=== PATIENT | female | born 1990 | race American Indian/Alaskan Native ===

== ENCOUNTER 2021-08-06 21:10 | Emergency (ER) | payer BC ==
[2021-08-06] MEDS ORDERED: ONDANSETRON 4 MG ODT TAB PO ONE (23:27)
[2021-08-07 00:49] LABS: Hematocrit 42.4 % (30.3-42.9); Hemoglobin 14.1 gm/dl (10.1-14.3); Mean Corpuscular HGB Conc 33 % (30-34); Mean Corpuscular Volume 97 fl (79-97); Platelet Count 224 K/mm3 (140-440); Red Blood Count 4.38 M/mm3 (3.65-5.03); Red Cell Distribution Width 13.3 % (13.2-15.2)
[2021-08-07 01:04] LABS: INR 0.88 (0.87-1.13)
[2021-08-07 01:09] LABS: Blood Urea Nitrogen 14 mg/dL (7-17); Hemolysis Index 7
[2021-08-07 01:13] LABS: BUN/Creatinine Ratio 20
[2021-08-07] MEDS ORDERED: SODIUM CHLORIDE 0.9% 1000 ML 1,000 ML IV ONE (03:20)
[2021-08-07] MEDS ORDERED: KETOROLAC 30 MG/1 ML INJ IV ONE (03:20)
[2021-08-07] MEDS ORDERED: BUTALB/ACETAMINOPHEN/CAFFEINE TAB PO ONE (03:20)
[2021-08-07] MEDS ORDERED: ONDANSETRON 4 MG/2 ML INJ IV ONE (03:21)
--- NOTE | 2021-08-07 04:05 | XRay Report ---
CHEST 1 VIEW INDICATION / CLINICAL INFORMATION: Syncope, lightheadedness. COMPARISON: None available. FINDINGS: SUPPORT DEVICES: None. HEART / MEDIASTINUM: No significant abnormality. LUNGS / PLEURA: No significant pulmonary or pleural abnormality. No pneumothorax. ADDITIONAL FINDINGS: No significant additional findings. IMPRESSION: 1. No acute findings. Signer Name: Chino Aguirre MD Signed: 08/07/2021 4:01 AM Workstation Name: [id number]
[2021-08-07 04:29] LABS: Bilirubin,Urine NEG (Negative); Blood,Urine NEG (Negative); Color,Urine Yellow (Yellow); Mucus,Urine 1+ /HPF; Protein,Urine <15 mg/dL mg/dL (Negative); WBC,Urine < 1.0 /HPF (0.0-6.0)
--- NOTE | 2021-08-07 05:10 | Cat Scan Report ---
CT HEAD WITHOUT CONTRAST INDICATION / CLINICAL INFORMATION: HEADACHE, SYNCOPE. TECHNIQUE: All CT scans at this location are performed using CT dose reduction for ALARA by means of automated e xposure control. COMPARISON: None available. FINDINGS: HEMORRHAGE: None. EXTRA-AXIAL SPACES: Normal in size and morphology for the patient's age. VENTRICULAR SYSTEM: Normal in size and morphology for the patient's age. CEREBRAL PARENCHYMA: No significant abnormality. No acute territorial infarct. MIDLINE SHIFT OR HERNIATION: None. CEREBELLUM / BRAINSTEM: No significant abnormality. ORBITS: Normal as visualized. SOFT TISSUES of HEAD: No significant abnormality. CALVARIUM: No significant abnormality. PARANASAL SINUSES / MASTOID AIR CELLS: Mucosal thickening right maxillary sinus. ADDITIONAL FINDINGS: None. IMPRESSION: 1. No acute intracranial abnormality. 2. Mucosal thickening right maxillary sinus Signer Name: Chino Aguirre MD Signed: 08/07/2021 5:06 AM Workstation Name: [id number]
--- NOTE | 2021-08-07 06:14 | Emergency Department Report ---
ED General Adult HPI - General Chief complaint: Syncope Stated complaint: SYNCOPE EPISODE/VOMITING Source: patient Mode of arrival: Ambulatory Limitations: No Limitations - History of Present Illness Initial comments: Patient is a 31-year-old -[place] female with no past medical history who presents to the ED with complaint of acute onset persistent headache, nausea and vomiting, lightheadedness for the last 2 days. Patient also complains of worsening symptoms in the last 12 hours complicated by a near syncopal episode after having intractable nausea and vomiting. Patient denies loss of consciousness, seizures, chest pain or shortness of breath, fever, chills, neck pain, change in vision, abdominal pain, diarrhea, dysuria, urinary frequency and urgency, back pain, sore throat, palpitations or cough. MD Complaint: Nausea and vomiting, lightheadedness, near syncopal episode, headache -: days(s) (2) Location: head Radiation: non-radiation Severity scale (0 -10): 7 Quality: aching, sharp Consistency: constant Improves with: none Worsens with: none Associated Symptoms: denies other symptoms, headaches, loss of appetite, malaise, nausea/vomiting, syncope, weakness. denies: confusion, cough, diaphoresis, rash, seizure, shortness of breath Treatments Prior to Arrival: none - Related Data Previous Rx's Medication Instructions Recorded Last Taken Type Amoxicillin/K Clav Tab [Augmentin 1 tab PO Q12HR #20 tab 08/07/21 Unknown Rx 875 mg] Butalb/Acetamin/Caff 50-325-40 1 - 2 tab PO Q6HR PRN #15 tab 08/07/21 Unknown Rx [Fioricet 50-325-40] Ibuprofen [Motrin] 800 mg PO Q8HR PRN #30 tablet 08/07/21 Unknown Rx Ondansetron [Zofran Odt] 4 mg PO Q8HR PRN #20 tab.rapdis 08/07/21 Unknown Rx Allergies Allergy/AdvReac Type Severity Reaction Status Date / Time No Known Allergies Allergy Verified 08/06/21 22:24 ED Review of Systems ROS: Stated complaint: SYNCOPE EPISODE/VOMITING Other details as noted in HPI Constitutional: malaise. denies: chills, fever, weakness Eyes: denies: eye pain, eye discharge, vision change ENT: denies: ear pain, throat pain Respiratory: denies: cough, shortness of breath, wheezing Cardiovascular: syncope. denies: chest pain, palpitations Endocrine: no symptoms reported Gastrointestinal: nausea, vomiting. denies: abdominal pain, diarrhea Genitourinary: denies: urgency, dysuria, discharge Musculoskeletal: arthralgia, myalgia. denies: back pain, joint swelling Skin: denies: rash, lesions Neurological: headache, other (Lightheadedness). denies: weakness, paresthesias Psychiatric: denies: anxiety, depression Hematological/Lymphatic: denies: easy bleeding, easy bruising ED Past Medical Hx - Medications Home Medications: Home Medications Medication Instructions Recorded Confirmed Last Taken Type Amoxicillin/K Clav Tab [Augmentin 1 tab PO Q12HR #20 tab 08/07/21 Unknown Rx 875 mg] Butalb/Acetamin/Caff 50-325-40 1 - 2 tab PO Q6HR PRN #15 tab 08/07/21 Unknown Rx [Fioricet 50-325-40] Ibuprofen [Motrin] 800 mg PO Q8HR PRN #30 tablet 08/07/21 Unknown Rx Ondansetron [Zofran Odt] 4 mg PO Q8HR PRN #20 tab.rapdis 08/07/21 Unknown Rx ED Physical Exam - General Limitations: No Limitations General appearance: alert, in no apparent distress - Head Head exam: Present: atraumatic, normocephalic - Eye Eye exam: Present: normal appearance, PERRL, EOMI Pupils: Present: normal accommodation - ENT ENT exam: Present: normal exam, normal orophraynx, mucous membranes moist, TM's normal bilaterally, normal external ear exam - Neck Neck exam: Present: normal inspection, full ROM - Respiratory Respiratory exam: Present: normal lung sounds bilaterally. Absent: respiratory distress, wheezes, rales, rhonchi, chest wall tenderness, accessory muscle use, decreased breath sounds, prolonged expiratory - Cardiovascular Cardiovascular Exam: Present: regular rate, normal rhythm, normal heart sounds. Absent: systolic murmur, diastolic murmur, rubs, gallop - GI/Abdominal GI/Abdominal exam: Present: soft, normal bowel sounds. Absent: distended, tenderness, guarding, hyperactive bowel sounds, organomegaly, mass - Extremities Exam Extremities exam: Present: normal inspection, full ROM, normal capillary refill. Absent: tenderness - Back Exam Back exam: Present: normal inspection, full ROM. Absent: tenderness, CVA tenderness (R), CVA tenderness (L), muscle spasm, paraspinal tenderness, vertebral tenderness - Neurological Exam Neurological exam: Present: alert, oriented X3, CN II-XII intact, normal gait, reflexes normal - Psychiatric Psychiatric exam: Present: normal affect, normal mood - Skin Skin exam: Present: warm, dry, intact, normal color. Absent: rash ED Course Vital Signs 08/06/21 08/07/21 08/07/21 22:19 04:43 04:44 Temperature 98 F Pulse Rate 67 Respiratory 18 16 16 Rate Blood Pressure 116/86 [Right] O2 Sat by Pulse 98 Oximetry ED Medical Decision Making - Lab Data Result diagrams: 08/07/21 00:17 08/07/21 00:17 - Radiology Data Radiology results: report reviewed, image reviewed [facility] [address] [place] [address] XRay Report Signed Patient: BRENT CAGE MR#: [id number] : 1990 Acct:[id number] Age/Sex: 31 / F ADM Date: 08/06/21 Loc: ED Attending Dr: Ordering Physician: BEVERLY ALAMO Date of Service: 08/07/21 Procedure(s): XR chest 1V ap Accession Number(s): [id number] cc: BEVERLY ALAMO Fluoro Time In Minutes: CHEST 1 VIEW INDICATION / CLINICAL INFORMATION: Syncope, lightheadedness. COMPARISON: None available. FINDINGS: SUPPORT DEVICES: None. HEART / MEDIASTINUM: No significant abnormality. LUNGS / PLEURA: No significant pulmonary or pleural abnormality. No pneumothorax. ADDITIONAL FINDINGS: No significant additional findings. IMPRESSION: 1. No acute findings. Signer Name: Chino Aguirre MD Signed: 08/07/2021 4:01 AM Workstation Name: [id number] Transcribed By: TL Dictated By: Chino Aguirre MD Electronically Authenticated By: Chino Aguirre MD Signed Date/Time: 08/07/21400 DD/ 9 TD/TT: [facility] [address] [place] [address] Cat Scan Report Signed Patient: BRENT CAGE MR#: [id number] : 1990 Acct:[id number] Age/Sex: 31 / F ADM Date: 08/06/21 Loc: ED Attending Dr: Ordering Physician: BEVERLY ALAMO Date of Service: 08/07/21 Procedure(s): CT head/brain wo con Accession Number(s): [id number] cc: BEVERLY ALAMO CT HEAD WITHOUT CONTRAST INDICATION / CLINICAL INFORMATION: HEADACHE, SYNCOPE. TECHNIQUE: All CT scans at this location are performed using CT dose reduction for ALARA by means of automated exposure control. COMPARISON: None available. FINDINGS: HEMORRHAGE: None. EXTRA-AXIAL SPACES: Normal in size and morphology for the patient's age. VENTRICULAR SYSTEM: Normal in size and morphology for the patient's age. CEREBRAL PARENCHYMA: No significant abnormality. No acute territorial infarct. MIDLINE SHIFT OR HERNIATION: None. CEREBELLUM / BRAINSTEM: No significant abnormality. ORBITS: Normal as visualized. SOFT TISSUES of HEAD: No significant abnormality. CALVARIUM: No significant abnormality. PARANASAL SINUSES / MASTOID AIR CELLS: Mucosal thickening right maxillary sinus. ADDITIONAL FINDINGS: None. IMPRESSION: 1. No acute intracranial abnormality. 2. Mucosal thickening right maxillary sinus Signer Name: Chino Aguirre MD Signed: 08/07/2021 5:06 AM Workstation Name: [id number] Transcribed By: TL Dictated By: Chino Aguirre MD Electronically Authenticated By: Chino Aguirre MD Signed Date/Time: 08/07/21505 DD/ 4 TD/TT: Print - Medical Decision Making This is a 31-year-old -[place] female with no past medical history who presents to the ED with complaint of acute onset persistent headache, nausea and vomiting, lightheadedness for the last 2 days. Patient also complains of worsening symptoms in the last 12 hours complicated by a near syncopal episode after having intractable nausea and vomiting. In the ED, patient is alert and oriented x3 and is not in any distress. Patient is stable hemodynamically. All lab test results were reviewed and are all nonactionable. Patient was treated for pain in the ED and also given antiemetics and normal saline 1 L. Chest x- ray showed no acute cardiopulmonary normalities or pneumonitis. Head CT scan without contrast showed no acute intracranial abnormalities or hemorrhage except for the finding of mucosal thickening right maxillary sinus. On reevaluation, patient felt better, headache resolved and patient has not had any nausea or vomiting while in the ED. Patient was discharged home on medications and advised to follow-up with her primary care physician in 7 to 10 days for reevaluation return to the ED immediately if symptoms get worse. - Differential Diagnosis Dehydration; sinusitis; GERD; ACS; pneumonia; Critical care attestation.: If time is entered above; I have spent that time in minutes in the direct care of this critically ill patient, excluding procedure time. ED Disposition Clinical Impression: Nausea and vomiting in adult patient, Sinus headache, Chronic right maxillary sinusitis, Vasovagal near syncope Disposition: 01 HOME / SELF CARE / HOMELESS Is pt being admited?: No Does the pt Need Aspirin: No Condition: Stable Instructions: Sinusitis, Adult, [id number], Nausea and Vomiting, Adult, [id number], Near-Syncope, [id number], Sinus Headache, [id number] Additional Instructions: All lab test results were reviewed and are all nonactionable. Chest x-ray showed no acute cardiopulmonary normalities or pneumonitis. The head CT scan without contrast showed no acute cranial abnormalities or hemorrhage except for the finding of right maxillary sinus opacification consistent with sinusitis. Therefore take medications with food, did fluids and follow-up with your primary care physician in 7 to 10 days for reevaluation. Immediately if symptoms get worse. Prescriptions: Amoxicillin/K Clav Tab [Augmentin 875 mg] 1 tab PO Q12HR #20 tab Butalb/Acetamin/Caff 50-325-40 [Fioricet 50-325-40] 1 - 2 tab PO Q6HR PRN #15 tab PRN Reason: Headache Ibuprofen [Motrin] 800 mg PO Q8HR PRN #30 tablet PRN Reason: Pain , Severe (7-10) Ondansetron [Zofran Odt] 4 mg PO Q8HR PRN #20 tab.rapdis PRN Reason: Nausea Referrals: [facility] [Provider Group] - 3-5 Days Forms: Work/School Release Form(ED) Time of Disposition: 06:20 Print Language: [place] CITIZEN
[2021-08-07 07:22] VITALS: BP 122/86
--- NOTE | 2021-08-07 12:33 | Electrocardiograph Report ---
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
== END 2021-08-07 07:21 | disposition home or self-care (01) ==
LOC: ED 21:10
DX: R11.2 Nausea with vomiting, unspecified (principal); G43.909 Migraine, unspecified, not intractable, without status migrainosus; J32.0 Chronic maxillary sinusitis; R55 Syncope and collapse; Z79.899 Other long term (current) drug therapy
CPT/HCPCS: 36415; 70450; 71045; 80048; 81001; 82550; 83735; 84484; 84702; 85027; 85610; 93005; 96361; 96374; 96375; 99284; J1885; J2405; J7030; 80320; G0480